=== PATIENT | female | born 1995 | race African-American/Black ===

== ENCOUNTER 2018-10-21 13:17 | Emergency (ER) | payer OTHER ==
[2018-10-21 13:43] VITALS: BP 108/62
--- NOTE | 2018-10-21 14:10 | ER Document Report ---
HPI - HPI Time Seen by Provider: 10/21/18 13:58 Pain Level: 5 Notes: Patient is a 23-year-old female who presents to the ED complaining of continued hemorrhoidal pain and trouble having bowel movements because of the pain. Patient states that she has had hemorrhoid issues for years. Patient states that on occasion she will have some bleeding associated. Patient states that before she came to the emergency department she did not want to have a bowel movement for the last 3-4 days because of the pain in her rectal area. Patient states that she has since had a bowel movement in our waiting room and the cramping has greatly improved. Patient states that she still has associated rectal pain, but the cramping has subsided. Patient states that her stool is otherwise brown and soft. She has not noticed any melena or hematochezia. She is eating and drinking without any difficulties. She is urinating normally. She has not had any vaginal discharge, odor, or bleeding. Her last menstrual period was 3-4 weeks ago. She has no other concerns or complaints. She has not been seen by specialist for her hemorrhoids. Denies any headache, fever, URI, sore throat, chest pain, palpitations, syncope, cough, shortness of breath , wheeze, dyspnea, abdominal pain, nausea/vomiting/diarrhea, urinary retention, dysuria, hematuria, back pain, loss of control of bowel or bladder, numbness/ tingling, saddle anesthesia, muscle paralysis/weakness, or rash. - ROS Systems Reviewed and Negative: Yes All other systems reviewed and negative Past Medical History - Social History Smoking Status: Never Smoker Family History: Reviewed & Not Pertinent Vertical Provider Document - CONSTITUTIONAL Agree With Documented VS: Yes Notes: PHYSICAL EXAMINATION: GENERAL: Well-appearing, well-nourished and in no acute distress. LUNGS: Breath sounds clear to auscultation bilaterally and equal. No wheezes rales or rhonchi. HEART: Regular rate and rhythm without murmurs, rubs, gallops. ABDOMEN: Soft, nontender, nondistended abdomen. No guarding, no rebound. No masses appreciated. Normal bowel sounds present. No CVA tenderness bilaterally. Rectal: accompanied by female nurse, Narcisa. + 2 external hemorrhoids noted that are non-thrombosed and not erythemic. + tenderness associated. + brown stool. no melena or hematochezia. Musculoskeletal: FROM to passive/active. Strength 5+/5. Extremities: No cyanosis, clubbing, or edema b/l. Peripheral pulses 2+. Capillary refill less than 3 seconds. NEUROLOGICAL: Normal speech, normal gait. PSYCH: Normal mood, normal affect. SKIN: Warm, Dry, normal turgor, no rashes or lesions noted. - INFECTION CONTROL TRAVEL OUTSIDE OF THE [place] IN LAST 30 DAYS: No Course - Re-evaluation Re-evalutation: 10/21/18 14:07 Patient is an afebrile, well-hydrated, 23-year-old female who presents to the ED with external hemorrhoids, nonthrombosed. Vitals are acceptable without significant tachycardia, tachypnea, or hypoxia. PE is otherwise unremarkable. Patient is nontoxic-appearing and is tolerating p.o. without difficulty. Patient did have a bowel movement in the waiting room today which has now made her a symptom medic to her abdomen. Patient does continue to have pain due to her external hemorrhoids. No further labs or imaging warranted at this time. Low suspicion/risk for acute appendicitis, bowel obstruction, acute cholecystitis, acute cholangitis, perforated diverticulitis, incarcerated hernia , pancreatitis, perforated ulcer, peritonitis, sepsis, pelvic inflammatory disease, or other systemic emergent condition at this time. Patient is aware that her condition can change from initial presentation and she needs to monitor symptoms closely and seek medical attention if any acute changes. Conservative measures otherwise for symptoms. Recheck with your PCM in 3-5 days. Consider consult with a director pharmaceutical/general surgeon for further evaluation and management this week. Return to the ED with any worsening/ concerning symptoms otherwise as reviewed in discharge. Patient is in agreement. - Vital Signs Vital signs: Temp Pulse Resp BP Pulse Ox 98.0 F 98 18 108/62 100 10/21/18 13:41 10/21/18 13:41 10/21/18 13:41 10/21/18 13:41 10/21/18 13:41 Discharge - Discharge Clinical Impression: External hemorrhoids without complication Condition: Stable Disposition: HOME, SELF-CARE Instructions: Hemorrhoids ([facility]), HC Hemorrhoid Cream ([facility]) Additional Instructions: Maintain adequate fluid and food intake Stool softeners daily Use meds as directed tylenol/ibuprofen if needed Monitor for any worsening symptoms Make sure you are staying hydrated enough to urinate and have normal BM's Recheck with your PCM in 2-3 days Schedule a consult with Gastroenterology/General surgeon for ongoing/worsening symptoms this week Return to the ED with any worsening symptoms and/or development of fever, headache, chest pain, palpitations, syncope, shortness of breath, trouble breathing, abdominal pain, n/v/d, blood in stool/urine, weakness, or other worsening symptoms that are concerning to you. Prescriptions: Hydrocortisone Acetate [Anusol Hc 25 mg Supp.rect] 1 supp.rect [place] DAILY PRN #10 supp.rect PRN Reason: Lidocaine HCl [Xylocaine] 1 gm TP QID PRN #35 oint..gm. PRN Reason: Referrals: TASIA REAL MD [ACTIVE STAFF] - Follow up as needed JAYSON APARICIO MD [ACTIVE STAFF] - Follow up as needed
== END 2018-10-21 14:35 | disposition home or self-care (01) ==
LOC: ER 13:17
DX: K64.4 Residual hemorrhoidal skin tags (principal); K62.89 Other specified diseases of anus and rectum
CPT/HCPCS: 99283